=== PATIENT | male | born 1985 | race Caucasian/White ===

== ENCOUNTER 2018-09-08 00:47 | Inpatient (IN) | payer OTHER, SELFPAY ==
[~2018-09-08] VITALS: Ht 190.5 cm; Wt 107.2 kg
[2018-09-08] VITALS (19 sets, daily range): BP systolic 82–132; BP diastolic 34–65
[2018-09-08] MEDS ORDERED: SODIUM CHLORIDE FLUSH 10ML SYR IVF ONE (01:00)
[2018-09-08] MEDS ORDERED: ONDA4TAB7 PO (01:12)
[2018-09-08] MEDS ORDERED: BUPR2TAB SL (01:12)
[2018-09-08] MEDS ORDERED: LACT10SO28 PO (01:12)
[2018-09-08] MEDS ORDERED: ESOM20CA PO (01:12)
[2018-09-08] MEDS ORDERED: VALA500T PO (01:12)
[2018-09-08 01:38] LABS: INTERNATIONAL NORMALIZED RATIO 3.7 (0.93-1.1); PROTHROMBIN TIME 36.9 Seconds (9.6-11.5)
--- NOTE | 2018-09-08 01:42 | NUR ---
PER LAB K+1.9. ER INFORMED. REQUESTS REDRAW. LAB INFORMED.
[2018-09-08 01:43] LABS: MEAN CORPUSCULAR HEMOGLOBIN 24.4 pg (27.5-34.5); MEAN CORPUSCULAR HGB CONC 32.4 g/dL (33.2-36.2); MEAN CORPUSCULAR VOLUME 75.2 fL (81-97); MEAN PLATELET VOLUME 8.8 fL (7.4-10.4); PLATELET COUNT 262 x10^3/uL (130-400); RED BLOOD COUNT 4.08 x10^6/uL (4.38-5.82); RED CELL DISTRIBUTION WIDTH 26.3 % (9.4-14.8)
[2018-09-08 01:51] LABS: MD YES
[2018-09-08 01:54] LABS: ANISOCYTOSIS 1+; BAND#(MANUAL) 0.14 x10^3/uL; BANDS%(MANUAL) 1 % (0-7); EOS#(MANUAL) 0.28 x10^3/uL (0.0-0.4); EOS% (MANUAL) 2 % (1-7); HYPOCHROMIA 1+; LYMPH#(MANUAL) 1.13 x10^3/uL (1-3.4); LYMPHS% (MANUAL) 8 % (22-44); MONOS#(MANUAL) 1.13 x10^3/uL (0.3-2.7); MONOS% (MANUAL) 8 % (2-9); NRBC % (MANUAL) 12 % (0-1); POLYCHROMASIA 1+; SEG#(MANUAL) 11.42 x10^3/uL (1.8-6.8); SEGS% (MANUAL) 81 % (42-75)
[2018-09-08 01:55] LABS: OVALOCYTES 1+; TARGET CELLS 1+; TEAR DROPS 1+
[2018-09-08 01:56] LABS: BASOPHILLIC STIPPLING 1+
[2018-09-08 01:57] LABS: SPHEROCYTES 1+
[2018-09-08 01:58] LABS: <PLATELET ESTIMATE> ADEQUATE; LARGE PLATELETS 1+
[2018-09-08] MEDS ORDERED: POTASSIUM CHLORIDE 40 MEQ in SODIUM CHLORIDE 0.9% 500 ML IV ONE (02:00)
--- NOTE | 2018-09-08 02:06 | NUR ---
Bedside SBAR report received from RNLicha. 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
[2018-09-08 02:22] LABS: ALBUMIN 2.7 g/dL (3.4-5.0); ANION GAP 14 mmol/L (5-15); CALCIUM 7.5 mg/dL (8.5-10.1); CHLORIDE 85 mmol/L (98-107)
[2018-09-08 02:27] LABS: CREATININE 5.43 mg/dL (0.7-1.3)
[2018-09-08 02:33] LABS: ALKALINE PHOSPHATASE 197 U/L (45-117)
[2018-09-08 02:37] LABS: ALANINE AMINOTRANSFERASE 149 U/L (12-78); TOTAL PROTEIN 7.2 g/dL (6.4-8.2)
[2018-09-08 02:38] LABS: BILIRUBIN,TOTAL 57.6 mg/dL (0.2-1.0)
[2018-09-08] MEDS ORDERED: LACTULOSE 3.3 GM/5 ML ORAL.SOL RC ONE ×2 (03:00)
[2018-09-08] MEDS ORDERED: POTASSIUM CHLORIDE 20 MEQ in SODIUM CHLORIDE 0.9% 250 ML IV ONE (03:30)
[2018-09-08] MEDS ORDERED: SODIUM CHLORIDE 0.9%, 500ML IVBOLUS ONE (03:30)
--- NOTE | 2018-09-08 04:19 | NUR ---
ORDERED ENEMA DONE, PT TOLERATED WELL. ENEMA INSERTION WAS EASY, NO RESISTANCE DURING INSERTION. PT RECTALY BLEEDING MINUTES AFTER REMOVAL OF ENEMA TUBE. ERP AWARE. ATTEMPTED TO GET PT ONTO BEDSIDE COMMODE. PT UNABLE TO FOLLOW COMMANDS. ORDERED FLUIDS INFUSING AT THIS TIME. BEDSIDE ULTRASOUND TAKING PLACE CURRENTLY. HOSPITALIST IN TO EVAL. PT PULLED OUT AN IV. PT PLACED IN SOFT WRIST RESTRAINTS, SIGNED ORDER ON CHART. WILL CONTINUE TO MONITOR.
[2018-09-08] MEDS ORDERED: DEXTROSE 50%, 50ML SYRINGE IVPush PRN (05:00)
[2018-09-08] MEDS ORDERED: GLUCAGON 1 MG IM PRN (05:00)
[2018-09-08] MEDS ORDERED: DEXTROSE 4 GM TAB.CHEW PO PRN (05:00)
--- NOTE | 2018-09-08 05:12 | NUR ---
REPORT RECEIVED FROM MEL GARCIA. ASSUMED CARE OF PT. PT RESTING ON GURNEY, IN MEDICAL RESTRAINTS AT THIS TIME. AWAKE BUT CONFUSED. AWAITING HOSPITALIST ORDERS AT THIS TIME. WILL CONTINUE TO MONITOR.
[2018-09-08 05:25] LABS: AMPHETAMINE SCREEN, URINE Negative (Negative); BARBITURATE SCREEN, URINE Negative (Negative); BENZODIAZEPINE SCREEN, URINE Negative (Negative); CANNABINOID SCREEN, URINE Negative (Negative); CHLORIDE,URINE RANDOM 66 mmol/L; COCAINE SCREEN, URINE Negative (Negative); METHADONE SCREEN, URINE Negative (Negative); OPIATE SCREEN, URINE Positive (Negative); POTASSIUM,URINE RANDOM 31 mmol/L; SODIUM,URINE RANDOM 62 mmol/L
[2018-09-08 05:30] LABS: MICROSCOPIC NOT IND
--- NOTE | 2018-09-08 05:48 | NUR ---
PT PASSED APPROX 400-500ML OF BRIGHT RED BLOOD WITH LARGE CLOTS FROM HIS RECTUM. HOSPITALIST, KATERIN NOTIFIED. PT REMAINS CONFUSED, NOT INTERACTIVE, LETHARGIC. THIS DISCUSSED WITH THE HOSPITALIST ABOUT POSSIBLE INTUBATION AND NEED FOR FURTHER ORDERS, SHE WAS ALSO ADVISED OF CONTINUED BLEEDING. NO NEW ORDERS TO BE PLACED AT THIS TIME. ER PHYSICIAN CONSULTED GI. NEW ORDERS PLACED.
[2018-09-08 05:50] LABS: CULTURE INDICATED? NO
[2018-09-08] MEDS ORDERED: OCTREOTIDE 500 MCG in SODIUM CHLORIDE 0.9% 249 ML IV PRN (05:54)
[2018-09-08] MEDS ORDERED: OCTREOTIDE 100MCG/ML, 1ML (0.1MG/ML) ONE (06:00)
[2018-09-08] MEDS ORDERED: SODIUM CHLORIDE 0.9% 1,000 ML IV ONE (06:00)
[2018-09-08] MEDS ORDERED: OCTREOTIDE 100MCG/ML, 1ML (0.1MG/ML) IV ONE (06:00)
--- NOTE | 2018-09-08 06:01 | NUR ---
PT CLEANED, NEW GOWN AND BEDDING PLACED. PT MOVED TO TRAUMA ROOM. REPORT TO MEL NERI.
--- NOTE | 2018-09-08 06:20 | NUR ---
PINK TOP DRAWN AND HANDED TO DRUM TENDER
--- NOTE | 2018-09-08 06:23 | NUR ---
THIS RN, CARLOTA LEAL, AND NOMAN YOUNG SIGNED CONSENT FOR FFP. PT NON VERBAL, INCREASED CONFUSION, AND DOES NOT FOLLOW COMMANDS.
[2018-09-08] MEDS: OCTREOTIDE 500 MCG in DEXTROSE 5% 249 ML IV SCH ×2 (06:29→17:01)
[2018-09-08] MEDS ORDERED: LACTATED RINGERS 1,000 ML IVBOLUS ONE ×2 (07:00→17:30)
[2018-09-08] MEDS ORDERED: CALCIUM GLUCONATE 9.2 MEQ in SODIUM CHLORIDE 0.9% 100 ML IV ONE (07:00)
[2018-09-08] MEDS ORDERED: CEFTRIAXONE PMX 1GM/50ML 50 ML ONE (07:00)
--- NOTE | 2018-09-08 07:01 | NUR ---
REPORT RECEIVED, CARE ASSUMED.
[2018-09-08] MEDS: CEFTRIAXONE PMX 1GM/50ML 50 ML IV SCH (07:03)
--- NOTE | 2018-09-08 07:12 | NUR ---
ENGAGEMENT MANAGER AT BEDSIDE TO DRAW 2ND SET OF BOOLD CULTURES. 1ST SET DRAWN EARLIER. FAMILY AT BEDSIDE.
--- NOTE | 2018-09-08 07:35 | NUR ---
CALL TO DR NORRIS, DISCUSSED PT IV LINES, NEED FOR CENTRAL LINE. MD REQUESTS ER MD TO PLACE LINE. DISCUSSED WITH DR KARIMI. DR KARIMI DISCUSSED WITH FAMILY AT BEDSIDE. VERBAL CONSENT GIVEN.
--- NOTE | 2018-09-08 07:53 | NUR ---
REPORT TO SANTY LEAL, POC DISCUSSED.
--- NOTE | 2018-09-08 08:01 | NUR ---
CONSENT FOR CENTRAL LINE PLACEMENT SIGNED BY PTS MOTHER RACHELLE
--- NOTE | 2018-09-08 08:10 | NUR ---
DR KARIMI AT BEDSIDE FOR CENTRAL LINE PLACEMENT
--- NOTE | 2018-09-08 08:12 | NUR ---
PIV LINE FLUSED AFTER ROCEPHIN ADMIN. CALL TO PHARMACY REQUESTED CALCIUM GTT
--- NOTE | 2018-09-08 08:53 | NUR ---
PORTABLE CXR COMPLETED. PER DR AKRIMI "OK TO USE CENTRAL LINE.
--- NOTE | 2018-09-08 08:56 | NUR ---
PT HAD LARGE BLOODY STOOL, POLO CARE PROVIDED.
[2018-09-08] MEDS: prednisOLONE 15 MG/5 ML ORAL SOLN NG SCH ×2 (09:36→14:10)
[2018-09-08] MEDS ORDERED: FOLIC ACID 1 MG, THIAMINE 200 MG, MVI ADULT 10 ML in DEXTROSE 5% 1,000 ML IV SCH (10:30)
[2018-09-08] MEDS ORDERED: LACTULOSE 20 GM/30 ML UDC NG SCH (11:00)
[2018-09-08] MEDS: PANTOPRAZOLE 40 MG IV IVPush SCH ×2 (11:06→22:22)
[2018-09-08] MEDS: SODIUM CHLORIDE 0.9% 1,000 ML IV SCH (11:06)
[2018-09-08] MEDS: SODIUM CHLORIDE FLUSH 10ML SYR IVF SCH ×2 (11:07→20:11)
[2018-09-08] MEDS: RIFAXIMIN 550 MG TABLET NG SCH ×2 (14:10→20:11)
[2018-09-08] MEDS: THIAMINE 200 MG, FOLIC ACID 1 MG, MVI ADULT 10 ML in SODIUM CHLORIDE 0.9% 1,000 ML IV SCH ×2 (14:10→19:35)
[2018-09-08] MEDS: PHYTONADIONE 10 MG/ML, 1ML SQ SCH (14:11)
[2018-09-08] MEDS: LACTULOSE 20 GM/30 ML UDC NG SCH (19:51)
[2018-09-08] MEDS ORDERED: LACTATED RINGERS 500 ML IVBOLUS ONE (21:30)
[2018-09-08] MEDS: NOREPINEPHRINE 8 MG in SODIUM CHLORIDE 0.9% 242 ML IV PRN (22:18)
[2018-09-08 23:05] LABS: MEAN CORPUSCULAR HEMOGLOBIN 26.9 pg (27.5-34.5); MEAN CORPUSCULAR HGB CONC 33.5 g/dL (33.2-36.2); MEAN CORPUSCULAR VOLUME 80.3 fL (81-97); MEAN PLATELET VOLUME 8.7 fL (7.4-10.4); PLATELET COUNT 255 x10^3/uL (130-400); RED CELL DISTRIBUTION WIDTH 28.9 % (9.4-14.8)
[2018-09-08 23:18] LABS: INTERNATIONAL NORMALIZED RATIO 3.69 (0.93-1.1); PROTHROMBIN TIME 36.8 Seconds (9.6-11.5)
[2018-09-09] VITALS (28 sets, daily range): BP systolic 87–127; BP diastolic 30–63
[2018-09-09] MEDS: LACTULOSE 20 GM/30 ML UDC NG SCH ×2 (00:01→03:45)
[2018-09-09 02:24] LABS: INTERNATIONAL NORMALIZED RATIO 2.48 (0.93-1.1); PROTHROMBIN TIME 25.1 Seconds (9.6-11.5)
[2018-09-09] MEDS: OCTREOTIDE 500 MCG in DEXTROSE 5% 249 ML IV SCH ×2 (03:08→14:27)
[2018-09-09] MEDS: SODIUM CHLORIDE 0.9% 1,000 ML IV SCH (04:19)
[2018-09-09 05:35] LABS: PROTHROMBIN TIME 20.4 Seconds (9.6-11.5)
[2018-09-09] MEDS: KSCALE TO 4.5 IV SCH ×5 (06:00→21:30)
[2018-09-09] MEDS ORDERED: CALCIUM GLUCONATE 9.2 MEQ in SODIUM CHLORIDE 0.9% 100 ML IV ONE (06:00)
[2018-09-09] MEDS ORDERED: POTASSIUM CHLORIDE 40 MEQ in SODIUM CHLORIDE 0.9% 100 ML IV ONE ×2 (07:00→16:00)
[2018-09-09 07:23] LABS: ALANINE AMINOTRANSFERASE 184 U/L (12-78); ALBUMIN 2.2 g/dL (3.4-5.0); ANION GAP 17 mmol/L (5-15); CALCIUM 6.7 mg/dL (8.5-10.1); CHLORIDE 98 mmol/L (98-107)
[2018-09-09 07:36] LABS: ALKALINE PHOSPHATASE 110 U/L (45-117); HDL CHOLESTEROL (DIRECT) 12 mg/dL (40-60); MEAN CORPUSCULAR HEMOGLOBIN 28.5 pg (27.5-34.5); MEAN CORPUSCULAR HGB CONC 34.3 g/dL (33.2-36.2); MEAN PLATELET VOLUME 8.6 fL (7.4-10.4); PLATELET COUNT 229 x10^3/uL (130-400); RED BLOOD COUNT 2.62 x10^6/uL (4.38-5.82); RED CELL DISTRIBUTION WIDTH 25.8 % (9.4-14.8)
[2018-09-09 07:38] LABS: MD YES
[2018-09-09 07:42] LABS: EOS#(MANUAL) 0.17 x10^3/uL (0.0-0.4); EOS% (MANUAL) 1 % (1-7); LYMPH#(MANUAL) 2.09 x10^3/uL (1-3.4); LYMPHS% (MANUAL) 12 % (22-44); MONOS#(MANUAL) 2.61 x10^3/uL (0.3-2.7); MONOS% (MANUAL) 15 % (2-9); NRBC % (MANUAL) 24 % (0-1); SEG#(MANUAL) 12.53 x10^3/uL (1.8-6.8); SEGS% (MANUAL) 72 % (42-75)
[2018-09-09 07:43] LABS: ANISOCYTOSIS 2+; BASOPHILLIC STIPPLING 1+; HYPOCHROMIA 1+; MICROCYTOSIS 1+; POLYCHROMASIA 1+; SCHISTOCYTES 2+; TARGET CELLS 1+
[2018-09-09 07:44] LABS: OVALOCYTES 1+; TEAR DROPS 1+
[2018-09-09 07:45] LABS: <PLATELET ESTIMATE> ADEQUATE; LARGE PLATELETS 1+
[2018-09-09 08:06] LABS: TOTAL PROTEIN 4.3 g/dL (6.4-8.2); TRIGLYCERIDES 113 mg/dL (50-200); VLDL CHOLESTEROL 23 mg/dL (0-25)
[2018-09-09 08:07] LABS: CHOL/HDL RATIO 4.2; CHOLESTEROL, TOTAL < 50 mg/dL (140-239); CREATININE 6.65 mg/dL (0.7-1.3); HDL CHOL % 0 % (26-37); LDL CHOLESTEROL,CALCULATED 15 mg/dL (54-169); LDL/HDL RATIO 1.3 (0.5-3.0)
[2018-09-09 08:11] LABS: BILIRUBIN,TOTAL 40.5 mg/dL (0.2-1.0)
[2018-09-09] MEDS ORDERED: FENTANYL PF 100 MCG/2ML ONE ×2 (08:29→08:38)
[2018-09-09] MEDS ORDERED: MIDAZOLAM 1 MG/ML, 5ML ONE (08:29)
[2018-09-09] MEDS ORDERED: NEOSTIGMINE 1 MG/ML, 10ML ONE (08:39)
[2018-09-09] MEDS ORDERED: LIDOCAINE-MPF 2% ,5ML ONE (08:39)
[2018-09-09] MEDS ORDERED: PROPOFOL 10 MG/ML, 20ML ONE (08:39)
[2018-09-09] MEDS ORDERED: ROCURONIUM 10MG/ML,5ML ONE (08:39)
[2018-09-09] MEDS ORDERED: SUCCINYLCHOLINE 20 MG/ML, 10ML ONE (08:40)
[2018-09-09] MEDS: RIFAXIMIN 550 MG TABLET NG SCH ×2 (09:00→21:00)
[2018-09-09] MEDS ORDERED: PHYTONADIONE 10 MG/ML, 1ML SQ SCH (09:00)
[2018-09-09] MEDS: prednisOLONE 15 MG/5 ML ORAL SOLN NG SCH (09:00)
[2018-09-09] MEDS: SODIUM CHLORIDE FLUSH 10ML SYR IVF SCH ×3 (09:37→21:00)
[2018-09-09] MEDS: CEFTRIAXONE PMX 1GM/50ML 50 ML IV SCH (09:37)
[2018-09-09] MEDS ORDERED: DEXTROSE 50%, 50ML SYRINGE IVPush PRN (10:00)
[2018-09-09] MEDS ORDERED: DEXTROSE 4 GM TAB.CHEW PO PRN (10:00)
[2018-09-09] MEDS ORDERED: PHARMACY MAY ADJ FOR RENAL FX MC SCH (10:00)
[2018-09-09] MEDS ORDERED: GLUCAGON 1 MG IM PRN (10:00)
[2018-09-09] MEDS ORDERED: LIDOCAINE-MPF 1%, 2ML ENDO PRN (10:00)
[2018-09-09] MEDS ORDERED: FENTANYL PF 100 MCG/2ML IVPush PRN (10:00)
[2018-09-09] MEDS ORDERED: MAGNESIUM SULFATE PMX 2GM/50ML 50 ML IV ONE (10:30)
[2018-09-09 10:54] LABS: TRIGLYCERIDES 108 mg/dL (50-200)
[2018-09-09] MEDS: INSULIN LISPRO 100 UNITS/ML, PEN SQ-INSULIN SCH ×3 (11:00→21:00)
[2018-09-09] MEDS: PANTOPRAZOLE 40 MG IV IVPush SCH ×2 (11:14→22:27)
[2018-09-09] MEDS: LACTULOSE 3.3 GM/5 ML ORAL.SOL RC SCH (11:30)
[2018-09-09] MEDS: PROPOFOL 100 ML IV PRN ×2 (14:27→20:04)
[2018-09-09] MEDS: PHYTONADIONE 10 MG/ML, 1ML SQ SCH (14:28)
[2018-09-09] MEDS ORDERED: THIAMINE 200 MG, FOLIC ACID 1 MG, MVI ADULT 10 ML in SODIUM CHLORIDE 0.9% 1,000 ML IV SCH (16:00)
[2018-09-09] MEDS: NOREPINEPHRINE 8 MG in SODIUM CHLORIDE 0.9% 242 ML IV PRN (19:38)
[2018-09-09] MEDS ORDERED: ALBUMIN HUMAN 5% 500 ML IV ONE (20:00)
[2018-09-09] MEDS ORDERED: VASOPRESSIN 100 UNIT in SODIUM CHLORIDE 0.9% 495 ML IV PRN (20:00)
[2018-09-09] MEDS: VASOPRESSIN 100 UNIT in SODIUM CHLORIDE 0.9% 495 ML IV PRN (22:24)
[2018-09-09] MEDS ORDERED: POTASSIUM CHLORIDE 30 MEQ in SODIUM CHLORIDE 0.9% 100 ML IV ONE (22:30)
[2018-09-09] MEDS ORDERED: NOREPINEPHRINE 16 MG in SODIUM CHLORIDE 0.9% 234 ML IV PRN (23:36)
[2018-09-10] MEDS: OCTREOTIDE 500 MCG in DEXTROSE 5% 249 ML IV SCH ×3 (00:19→20:56)
[2018-09-10] MEDS: INSULIN LISPRO 100 UNITS/ML, PEN SQ-INSULIN SCH ×4 (02:56→23:35)
[2018-09-10] MEDS: PROPOFOL 100 ML IV PRN ×4 (02:57→18:19)
[2018-09-10] MEDS: KSCALE TO 4.5 IV SCH ×4 (02:57→23:00)
[2018-09-10 03:26] LABS: ALBUMIN 2.3 g/dL (3.4-5.0); ANION GAP 15 mmol/L (5-15); CHLORIDE 106 mmol/L (98-107)
[2018-09-10 03:39] LABS: ALANINE AMINOTRANSFERASE 234 U/L (12-78); ALKALINE PHOSPHATASE 121 U/L (45-117)
[2018-09-10 03:48] LABS: CREATININE 7.71 mg/dL (0.7-1.3); TOTAL PROTEIN 4.2 g/dL (6.4-8.2)
[2018-09-10 03:49] LABS: CALCIUM 5.9 mg/dL (8.5-10.1)
[2018-09-10 04:00] VITALS: BP_SYST 115; BP_SYST 130; BP_DIAS 48; BP_DIAS 60
[2018-09-10] MEDS ORDERED: POTASSIUM CHLORIDE 30 MEQ in SODIUM CHLORIDE 0.9% 100 ML IV ONE ×4 (04:00→23:30)
[2018-09-10] MEDS ORDERED: CALCIUM GLUCONATE 9.2 MEQ in SODIUM CHLORIDE 0.9% 100 ML IV ONE (04:00)
[2018-09-10 04:37] LABS: MEAN CORPUSCULAR HEMOGLOBIN 28.9 pg (27.5-34.5); MEAN CORPUSCULAR HGB CONC 34.1 g/dL (33.2-36.2); MEAN CORPUSCULAR VOLUME 84.7 fL (81-97); MEAN PLATELET VOLUME 8.7 fL (7.4-10.4); PLATELET COUNT 229 x10^3/uL (130-400); RED BLOOD COUNT 2.86 x10^6/uL (4.38-5.82); RED CELL DISTRIBUTION WIDTH 22.3 % (9.4-14.8)
[2018-09-10 05:03] LABS: MD YES
[2018-09-10 05:05] LABS: BAND#(MANUAL) 1.31 x10^3/uL; BANDS%(MANUAL) 5 % (0-7); LYMPH#(MANUAL) 2.09 x10^3/uL (1-3.4); LYMPHS% (MANUAL) 8 % (22-44); METAMYELOCYTES# (MANUAL) 0.26 x10^3/uL (0-0); METAMYELOCYTES% (MANUAL) 1 % (0-1); MONOS#(MANUAL) 4.96 x10^3/uL (0.3-2.7); MONOS% (MANUAL) 19 % (2-9); MYELOCYTES# (MANUAL) 0.26 x10^3/uL (0-0); MYELOCYTES% (MANUAL) 1 % (0-0); NRBC % (MANUAL) 23 % (0-1); SEG#(MANUAL) 17.23 x10^3/uL (1.8-6.8); SEGS% (MANUAL) 66 % (42-75)
[2018-09-10 05:06] LABS: ANISOCYTOSIS 2+; HYPOCHROMIA 1+; POLYCHROMASIA 1+
[2018-09-10 05:07] LABS: <PLATELET ESTIMATE> ADEQUATE; <PLT MORPHOLOGY> NORMAL PLT MORPH; BASOPHILLIC STIPPLING 1+; CRENATED 1+; OVALOCYTES 1+; TARGET CELLS 1+; TEAR DROPS 1+
[2018-09-10] MEDS: SODIUM BICARBONATE 8.4% 150 MEQ in DEXTROSE 5% 1,000 ML IV SCH ×2 (05:15→18:42)
[2018-09-10] MEDS ORDERED: PROPOFOL 10 MG/ML, 100ML IV ONE (07:29)
[2018-09-10] MEDS: NOREPINEPHRINE 16 MG in SODIUM CHLORIDE 0.9% 234 ML IV PRN ×2 (07:44→20:58)
[2018-09-10] MEDS: CEFTRIAXONE PMX 1GM/50ML 50 ML IV SCH (07:56)
[2018-09-10] MEDS ORDERED: TPN PER PHARMACY MC PRN (08:30)
[2018-09-10] MEDS: RIFAXIMIN 550 MG TABLET NG SCH ×2 (09:00→19:52)
[2018-09-10] MEDS: SODIUM CHLORIDE FLUSH 10ML SYR IVF SCH ×4 (09:00→20:59)
[2018-09-10] MEDS: prednisOLONE 15 MG/5 ML ORAL SOLN NG SCH (09:00)
[2018-09-10] MEDS ORDERED: SODIUM CHLORIDE 0.9% 1,000 ML IV SCH (10:30)
[2018-09-10] MEDS: LACTULOSE 3.3 GM/5 ML ORAL.SOL RC SCH (11:34)
[2018-09-10 11:48] LABS: CALCIUM 6.4 mg/dL (8.5-10.1)
[2018-09-10] MEDS: PHYTONADIONE 10 MG/ML, 1ML SQ SCH (14:54)
[2018-09-10] MEDS ORDERED: DEXTROSE 50%, 50ML SYRINGE IVPush PRN (17:00)
[2018-09-10] MEDS ORDERED: SMOF TPN IV SCH (17:00)
[2018-09-10] MEDS ORDERED: DEXTROSE 10% 500 ML IV PRN (17:00)
[2018-09-10] MEDS ORDERED: FAT EMUL IV SCH (17:00)
[2018-09-10] MEDS ORDERED: AMINO ACID 10% IV SCH (17:00)
[2018-09-10] MEDS ORDERED: DEXTROSE 70% IV SCH (17:00)
[2018-09-10] MEDS ORDERED: [UNRECOGNIZED DRUG - OTHER] IV SCH (17:00)
[2018-09-10] MEDS: FILTER, DISP 1.2 MICRON FOR TPN/PVN IV PRN (17:22)
[2018-09-10 17:34] LABS: HEMOGRAM NOTE RECHECKED
[2018-09-10] MEDS ORDERED: PANTOPRAZOLE GRAN. PKT 40 MG PO SCH (22:00)
[2018-09-10] MEDS ORDERED: PANTOPRAZOLE 40 MG IV IVPush SCH (22:00)
[2018-09-10 23:42] VITALS: BP 120/51
[2018-09-10 23:57] VITALS: BP 126/50
[2018-09-11 01:25] VITALS: BP 123/52
[2018-09-11 04:00] VITALS: BP 114/49
[2018-09-11] MEDS: INSULIN LISPRO 100 UNITS/ML, PEN SQ-INSULIN SCH ×4 (05:00→23:00)
[2018-09-11] MEDS: KSCALE TO 4.5 IV SCH ×4 (05:00→23:00)
[2018-09-11 05:54] LABS: ANION GAP 12 mmol/L (5-15); CALCIUM 6.6 mg/dL (8.5-10.1); CHLORIDE 107 mmol/L (98-107)
[2018-09-11 05:57] LABS: MD YES; MEAN CORPUSCULAR HEMOGLOBIN 29.4 pg (27.5-34.5); MEAN CORPUSCULAR HGB CONC 34.4 g/dL (33.2-36.2); MEAN CORPUSCULAR VOLUME 85.4 fL (81-97); MEAN PLATELET VOLUME 8.4 fL (7.4-10.4); PLATELET COUNT 163 x10^3/uL (130-400); RED BLOOD COUNT 2.58 x10^6/uL (4.38-5.82); RED CELL DISTRIBUTION WIDTH 19.6 % (9.4-14.8)
[2018-09-11 05:58] LABS: PREALBUMIN 8.4 mg/dL (20.0-40.0)
[2018-09-11 05:59] LABS: CREATININE 8.42 mg/dL (0.7-1.3)
[2018-09-11 06:00] LABS: BAND#(MANUAL) 0.83 x10^3/uL; BANDS%(MANUAL) 3 % (0-7); EOS#(MANUAL) 0.28 x10^3/uL (0.0-0.4); EOS% (MANUAL) 1 % (1-7); LYMPH#(MANUAL) 2.48 x10^3/uL (1-3.4); LYMPHS% (MANUAL) 9 % (22-44); METAMYELOCYTES# (MANUAL) 0.28 x10^3/uL (0-0); METAMYELOCYTES% (MANUAL) 1 % (0-1); MONOS#(MANUAL) 2.48 x10^3/uL (0.3-2.7); MONOS% (MANUAL) 9 % (2-9); NRBC % (MANUAL) 50 % (0-1); SEG#(MANUAL) 21.25 x10^3/uL (1.8-6.8); SEGS% (MANUAL) 77 % (42-75)
[2018-09-11 06:01] LABS: ANISOCYTOSIS 2+; MICROCYTOSIS 1+
[2018-09-11 06:02] LABS: BASOPHILLIC STIPPLING 1+; HYPOCHROMIA 1+; OVALOCYTES 1+; POLYCHROMASIA 1+; SCHISTOCYTES 1+; TARGET CELLS 1+
[2018-09-11 06:03] LABS: TEAR DROPS 1+
[2018-09-11 06:04] LABS: <PLATELET ESTIMATE> ADEQUATE; <PLT MORPHOLOGY> NORMAL PLT MORPH; TOXIC GRAN 1+
[2018-09-11] MEDS: PANTOPRAZOLE 40 MG IV IVPush SCH (06:21)
[2018-09-11] MEDS ORDERED: POTASSIUM CHLORIDE 40 MEQ in SODIUM CHLORIDE 0.9% 100 ML IV ONE (06:30)
[2018-09-11 07:30] VITALS: BP 117/52
[2018-09-11] MEDS: RIFAXIMIN 550 MG TABLET NG SCH ×2 (09:00→19:20)
[2018-09-11] MEDS: prednisOLONE 15 MG/5 ML ORAL SOLN NG SCH (09:00)
[2018-09-11] MEDS: CEFTRIAXONE PMX 1GM/50ML 50 ML IV SCH (09:08)
[2018-09-11] MEDS: SODIUM CHLORIDE FLUSH 10ML SYR IVF SCH ×4 (09:09→23:19)
[2018-09-11] MEDS: OCTREOTIDE 500 MCG in DEXTROSE 5% 249 ML IV SCH ×2 (09:34→17:30)
[2018-09-11] MEDS: LACTULOSE 3.3 GM/5 ML ORAL.SOL RC SCH (09:40)
[2018-09-11 10:19] LABS: ALBUMIN 1.9 g/dL (3.4-5.0)
[2018-09-11 10:29] LABS: BILIRUBIN,INDIRECT 6.1 mg/dL (0.0-2.0)
[2018-09-11 10:30] LABS: TOTAL PROTEIN 3.8 g/dL (6.4-8.2)
[2018-09-11 10:34] LABS: BILIRUBIN, DIRECT 30.6 mg/dL (0.1-0.2); BILIRUBIN,TOTAL 36.7 mg/dL (0.2-1.0)
[2018-09-11] MEDS: NOREPINEPHRINE 16 MG in SODIUM CHLORIDE 0.9% 234 ML IV PRN ×2 (10:54→23:18)
[2018-09-11] MEDS: SODIUM BICARBONATE 8.4% 150 MEQ in DEXTROSE 5% 1,000 ML IV SCH (11:03)
[2018-09-11 11:27] LABS: HEMOGRAM NOTE RECHECKED
[2018-09-11] MEDS: PROPOFOL 100 ML IV PRN (11:29)
[2018-09-11] MEDS ORDERED: POTASSIUM CHLORIDE 30 MEQ in SODIUM CHLORIDE 0.9% 100 ML IV ONE ×2 (13:00→23:45)
[2018-09-11 14:19] VITALS: BP 107/45
[2018-09-11 14:34] VITALS: BP 110/46
[2018-09-11 16:00] VITALS: BP 115/53
[2018-09-11] MEDS ORDERED: SMOF TPN IV SCH (17:00)
[2018-09-11] MEDS ORDERED: DEXTROSE 70% IV SCH (17:00)
[2018-09-11] MEDS ORDERED: FAT EMUL IV SCH (17:00)
[2018-09-11] MEDS ORDERED: AMINO ACID 10% IV SCH (17:00)
[2018-09-11] MEDS ORDERED: [UNRECOGNIZED DRUG - OTHER] IV SCH (17:00)
[2018-09-11] MEDS: VASOPRESSIN 100 UNIT in SODIUM CHLORIDE 0.9% 495 ML IV PRN (17:30)
[2018-09-12] MEDS: PROPOFOL 100 ML IV PRN ×2 (00:33→10:27)
[2018-09-12 00:46] VITALS: BP 117/56
[2018-09-12 01:02] VITALS: BP 115/53
[2018-09-12 03:02] VITALS: BP 125/55
[2018-09-12] MEDS: SODIUM BICARBONATE 8.4% 150 MEQ in DEXTROSE 5% 1,000 ML IV SCH ×2 (03:19→17:10)
[2018-09-12] MEDS: OCTREOTIDE 500 MCG in DEXTROSE 5% 249 ML IV SCH ×2 (03:19→16:09)
[2018-09-12 04:00] VITALS: BP 117/52
[2018-09-12 05:06] LABS: ANION GAP 8 mmol/L (5-15); CHLORIDE 104 mmol/L (98-107)
[2018-09-12 05:07] LABS: CREATININE 6.76 mg/dL (0.7-1.3); TRIGLYCERIDES 114 mg/dL (50-200)
[2018-09-12] MEDS ORDERED: POTASSIUM CHLORIDE 40 MEQ in SODIUM CHLORIDE 0.9% 100 ML IV ONE (05:30)
[2018-09-12] MEDS: INSULIN LISPRO 100 UNITS/ML, PEN SQ-INSULIN SCH ×4 (05:47→22:39)
[2018-09-12] MEDS: PANTOPRAZOLE 40 MG IV IVPush SCH (05:47)
[2018-09-12] MEDS: KSCALE TO 4.5 IV SCH ×4 (05:47→23:00)
[2018-09-12 05:53] LABS: MD YES; MEAN CORPUSCULAR HEMOGLOBIN 30.7 pg (27.5-34.5); MEAN CORPUSCULAR HGB CONC 34.7 g/dL (33.2-36.2); MEAN CORPUSCULAR VOLUME 88.4 fL (81-97); MEAN PLATELET VOLUME 9.1 fL (7.4-10.4); PLATELET COUNT 83 x10^3/uL (130-400); RED BLOOD COUNT 2.65 x10^6/uL (4.38-5.82); RED CELL DISTRIBUTION WIDTH 18.6 % (9.4-14.8)
[2018-09-12 05:58] LABS: <PLATELET ESTIMATE> DECREASED; <PLT MORPHOLOGY> NORMAL PLT MORPH; ANISOCYTOSIS 2+; BANDS%(MANUAL) 2 % (0-7); BASOPHILLIC STIPPLING 1+; EOS#(MANUAL) 0.99 x10^3/uL (0.0-0.4); EOS% (MANUAL) 4 % (1-7); HYPOCHROMIA 1+; LYMPH#(MANUAL) 2.73 x10^3/uL (1-3.4); LYMPHS% (MANUAL) 11 % (22-44); METAMYELOCYTES# (MANUAL) 0.74 x10^3/uL (0-0); METAMYELOCYTES% (MANUAL) 3 % (0-1); MICROCYTOSIS 1+; MONOS#(MANUAL) 2.98 x10^3/uL (0.3-2.7); MONOS% (MANUAL) 12 % (2-9); MYELOCYTES% (MANUAL) 2 % (0-0); NRBC % (MANUAL) 36 % (0-1); OVALOCYTES 1+; SCHISTOCYTES 1+; SEG#(MANUAL) 16.37 x10^3/uL (1.8-6.8); SEGS% (MANUAL) 66 % (42-75); TARGET CELLS 1+
[2018-09-12 05:59] LABS: POLYCHROMASIA 1+
[2018-09-12 06:00] LABS: ACANTHOCYTES 1+; ECHINOCYTES 1+; TOXIC GRAN 1+
[2018-09-12] MEDS: CEFTRIAXONE PMX 1GM/50ML 50 ML IV SCH (08:48)
[2018-09-12] MEDS: SODIUM CHLORIDE FLUSH 10ML SYR IVF SCH ×4 (08:56→20:14)
[2018-09-12] MEDS: NOREPINEPHRINE 16 MG in SODIUM CHLORIDE 0.9% 234 ML IV PRN ×2 (08:58→22:39)
[2018-09-12] MEDS: RIFAXIMIN 550 MG TABLET NG SCH ×2 (09:00→19:22)
[2018-09-12] MEDS: prednisOLONE 15 MG/5 ML ORAL SOLN NG SCH (09:00)
[2018-09-12] MEDS: LACTULOSE 3.3 GM/5 ML ORAL.SOL RC SCH (10:28)
[2018-09-12 13:09] LABS: ALBUMIN 1.4 g/dL (3.4-5.0); BILIRUBIN,INDIRECT 5.7 mg/dL (0.0-2.0)
[2018-09-12 13:12] LABS: TOTAL PROTEIN 3.4 g/dL (6.4-8.2)
[2018-09-12 13:15] LABS: BILIRUBIN, DIRECT 24.8 mg/dL (0.1-0.2); BILIRUBIN,TOTAL 30.5 mg/dL (0.2-1.0)
[2018-09-12] MEDS ORDERED: POTASSIUM CHLORIDE PMX 100 ML IV ONE (14:30)
[2018-09-12] MEDS: FAT EMUL IV SCH ×2 (17:12→18:18)
[2018-09-12] MEDS: AMINO ACID 10% IV SCH ×2 (17:12→18:18)
[2018-09-12] MEDS: DEXTROSE 70% IV SCH ×2 (17:12→18:18)
[2018-09-12] MEDS: SMOF TPN IV SCH ×2 (17:12→18:18)
[2018-09-12] MEDS: FILTER, DISP 1.2 MICRON FOR TPN/PVN IV PRN ×2 (17:12→18:18)
[2018-09-12] MEDS: [UNRECOGNIZED DRUG - OTHER] IV SCH ×2 (17:12→18:18)
[2018-09-12 17:29] LABS: INTERNATIONAL NORMALIZED RATIO 2.49 (0.93-1.1); PROTHROMBIN TIME 25.2 Seconds (9.6-11.5)
[2018-09-12] MEDS: VASOPRESSIN 100 UNIT in SODIUM CHLORIDE 0.9% 495 ML IV PRN (22:04)
[2018-09-13 00:58] VITALS: BP 106/44
[2018-09-13 01:13] VITALS: BP 113/44
[2018-09-13] MEDS: PROPOFOL 100 ML IV PRN ×3 (03:08→22:48)
[2018-09-13] MEDS: OCTREOTIDE 500 MCG in DEXTROSE 5% 249 ML IV SCH ×3 (03:08→22:47)
[2018-09-13 03:48] VITALS: BP 123/57
[2018-09-13 04:00] VITALS: BP 109/46
[2018-09-13] MEDS: KSCALE TO 4.5 IV SCH ×4 (05:00→23:00)
[2018-09-13 05:06] LABS: MEAN CORPUSCULAR HEMOGLOBIN 30.1 pg (27.5-34.5); MEAN CORPUSCULAR HGB CONC 34.1 g/dL (33.2-36.2); MEAN CORPUSCULAR VOLUME 88.4 fL (81-97); MEAN PLATELET VOLUME 9.3 fL (7.4-10.4); PLATELET COUNT 72 x10^3/uL (130-400); RED CELL DISTRIBUTION WIDTH 17.4 % (9.4-14.8)
[2018-09-13 05:12] LABS: ANION GAP 6 mmol/L (5-15); CALCIUM 7.3 mg/dL (8.5-10.1); CHLORIDE 101 mmol/L (98-107)
[2018-09-13 05:18] LABS: CREATININE 5.56 mg/dL (0.7-1.3)
[2018-09-13] MEDS: PANTOPRAZOLE 40 MG IV IVPush SCH (05:41)
[2018-09-13] MEDS: INSULIN LISPRO 100 UNITS/ML, PEN SQ-INSULIN SCH ×4 (05:41→22:53)
[2018-09-13 05:42] LABS: MD YES
[2018-09-13 05:45] LABS: BAND#(MANUAL) 0.61 x10^3/uL; BANDS%(MANUAL) 2 % (0-7); EOS#(MANUAL) 0.61 x10^3/uL (0.0-0.4); EOS% (MANUAL) 2 % (1-7); LYMPH#(MANUAL) 1.82 x10^3/uL (1-3.4); LYMPHS% (MANUAL) 6 % (22-44); METAMYELOCYTES# (MANUAL) 1.22 x10^3/uL (0-0); METAMYELOCYTES% (MANUAL) 4 % (0-1); MONOS#(MANUAL) 3.34 x10^3/uL (0.3-2.7); MONOS% (MANUAL) 11 % (2-9); MYELOCYTES% (MANUAL) 1 % (0-0); NRBC % (MANUAL) 21 % (0-1); SEGS% (MANUAL) 74 % (42-75)
[2018-09-13 05:46] LABS: <PLATELET ESTIMATE> DECREASED; <PLT MORPHOLOGY> NORMAL PLT MORPH; ACANTHOCYTES 1+; ANISOCYTOSIS 2+; BASOPHILLIC STIPPLING 1+; ECHINOCYTES 1+; HYPOCHROMIA 1+; MICROCYTOSIS 1+; OVALOCYTES 1+; POLYCHROMASIA 1+; SCHISTOCYTES 1+; TOXIC GRAN 1+
[2018-09-13] MEDS ORDERED: MICROFIBRILLAR COLLAGEN 1 GM TP ONE (08:30)
[2018-09-13] MEDS: RIFAXIMIN 550 MG TABLET NG SCH ×2 (08:32→20:01)
[2018-09-13] MEDS: SODIUM CHLORIDE FLUSH 10ML SYR IVF SCH ×4 (08:32→22:47)
[2018-09-13] MEDS: CEFTRIAXONE PMX 1GM/50ML 50 ML IV SCH (08:32)
[2018-09-13] MEDS: prednisOLONE 15 MG/5 ML ORAL SOLN NG SCH (08:32)
[2018-09-13] MEDS ORDERED: PHENYLEPHRINE 20 MG in SODIUM CHLORIDE 0.9% 248 ML IV PRN (09:00)
[2018-09-13] MEDS: LACTULOSE 3.3 GM/5 ML ORAL.SOL RC SCH (10:12)
[2018-09-13] MEDS: HYDROCORTISONE 100 MG INJ. IVPush SCH ×3 (10:12→23:56)
[2018-09-13] MEDS: NOREPINEPHRINE 16 MG in SODIUM CHLORIDE 0.9% 234 ML IV PRN (10:29)
[2018-09-13 12:18] LABS: INTERNATIONAL NORMALIZED RATIO 2.63 (0.93-1.1); PROTHROMBIN TIME 26.6 Seconds (9.6-11.5)
[2018-09-13 12:20] LABS: CHLORIDE 99 mmol/L (98-107)
[2018-09-13 12:37] LABS: ALANINE AMINOTRANSFERASE 178 U/L (12-78); ALBUMIN 1.5 g/dL (3.4-5.0); ALKALINE PHOSPHATASE 126 U/L (45-117); ANION GAP 8 mmol/L (5-15)
[2018-09-13 12:59] LABS: CREATININE 5.83 mg/dL (0.7-1.3)
[2018-09-13 13:01] LABS: BILIRUBIN,TOTAL 33.6 mg/dL (0.2-1.0)
[2018-09-13] MEDS ORDERED: AMINO ACID 10% IV SCH (17:00)
[2018-09-13] MEDS ORDERED: FAT EMUL IV SCH (17:00)
[2018-09-13] MEDS ORDERED: DEXTROSE 70% IV SCH (17:00)
[2018-09-13] MEDS ORDERED: SMOF TPN IV SCH (17:00)
[2018-09-13] MEDS ORDERED: [UNRECOGNIZED DRUG - OTHER] IV SCH (17:00)
[2018-09-14 04:03] VITALS: BP 113/50
[2018-09-14] MEDS: PANTOPRAZOLE 40 MG IV IVPush SCH (04:58)
[2018-09-14] MEDS: INSULIN LISPRO 100 UNITS/ML, PEN SQ-INSULIN SCH ×4 (05:00→23:00)
[2018-09-14] MEDS: KSCALE TO 4.5 IV SCH (05:00)
[2018-09-14 05:41] LABS: CHLORIDE 98 mmol/L (98-107)
[2018-09-14 06:00] LABS: ALANINE AMINOTRANSFERASE 149 U/L (12-78); ALBUMIN 1.4 g/dL (3.4-5.0); ALKALINE PHOSPHATASE 114 U/L (45-117); ANION GAP 10 mmol/L (5-15); CALCIUM 7.9 mg/dL (8.5-10.1)
[2018-09-14 06:06] LABS: CREATININE 6.55 mg/dL (0.7-1.3); TOTAL PROTEIN 3.8 g/dL (6.4-8.2)
[2018-09-14 06:08] LABS: BILIRUBIN,TOTAL 30.6 mg/dL (0.2-1.0)
[2018-09-14 06:29] LABS: MD YES; MEAN CORPUSCULAR HEMOGLOBIN 30.9 pg (27.5-34.5); MEAN CORPUSCULAR HGB CONC 34.1 g/dL (33.2-36.2); MEAN CORPUSCULAR VOLUME 90.8 fL (81-97); MEAN PLATELET VOLUME 10.7 fL (7.4-10.4); PLATELET COUNT 73 x10^3/uL (130-400); RED BLOOD COUNT 2.65 x10^6/uL (4.38-5.82); RED CELL DISTRIBUTION WIDTH 17.3 % (9.4-14.8)
[2018-09-14 06:31] LABS: LYMPH#(MANUAL) 2.47 x10^3/uL (1-3.4); LYMPHS% (MANUAL) 8 % (22-44); MONOS#(MANUAL) 1.24 x10^3/uL (0.3-2.7); MONOS% (MANUAL) 4 % (2-9); MYELOCYTES# (MANUAL) 0.62 x10^3/uL (0-0); MYELOCYTES% (MANUAL) 2 % (0-0); NRBC % (MANUAL) 21 % (0-1); SEG#(MANUAL) 26.57 x10^3/uL (1.8-6.8); SEGS% (MANUAL) 86 % (42-75)
[2018-09-14 06:32] LABS: ANISOCYTOSIS 2+; BASOPHILLIC STIPPLING 1+; MICROCYTOSIS 1+; POLYCHROMASIA 1+
[2018-09-14 06:33] LABS: TEAR DROPS 1+
[2018-09-14 06:35] LABS: OVALOCYTES 1+; SCHISTOCYTES 1+
[2018-09-14 06:37] LABS: <PLATELET ESTIMATE> DECREASED; <PLT MORPHOLOGY> NORMAL PLT MORPH
[2018-09-14 06:38] LABS: TOXIC GRAN 1+
[2018-09-14 06:53] LABS: INTERNATIONAL NORMALIZED RATIO 2.88 (0.93-1.1)
[2018-09-14] MEDS: CEFTRIAXONE PMX 1GM/50ML 50 ML IV SCH (07:52)
[2018-09-14] MEDS: PROPOFOL 100 ML IV PRN (08:19)
[2018-09-14] MEDS: RIFAXIMIN 550 MG TABLET NG SCH ×2 (09:00→21:00)
[2018-09-14] MEDS: SODIUM CHLORIDE FLUSH 10ML SYR IVF SCH ×4 (09:00→22:21)
[2018-09-14] MEDS: LACTULOSE 3.3 GM/5 ML ORAL.SOL RC SCH (09:25)
[2018-09-14] MEDS: HYDROCORTISONE 100 MG INJ. IVPush SCH ×2 (09:25→17:35)
[2018-09-14] MEDS: OCTREOTIDE 500 MCG in DEXTROSE 5% 249 ML IV SCH ×2 (09:32→23:21)
[2018-09-14] MEDS ORDERED: SMOF TPN IV SCH (17:00)
[2018-09-14] MEDS ORDERED: [UNRECOGNIZED DRUG - OTHER] IV SCH (17:00)
[2018-09-14] MEDS ORDERED: AMINO ACID 10% IV SCH (17:00)
[2018-09-14] MEDS ORDERED: FAT EMUL IV SCH (17:00)
[2018-09-14] MEDS ORDERED: DEXTROSE 70% IV SCH (17:00)
[2018-09-14] MEDS: NOREPINEPHRINE 16 MG in SODIUM CHLORIDE 0.9% 234 ML IV PRN (17:36)
[2018-09-15] MEDS: HYDROCORTISONE 100 MG INJ. IVPush SCH ×3 (01:35→17:00)
[2018-09-15] MEDS: PROPOFOL 100 ML IV PRN (03:35)
[2018-09-15 04:00] VITALS: BP 94/48
[2018-09-15 04:55] LABS: ANION GAP 11 mmol/L (5-15); CHLORIDE 98 mmol/L (98-107)
[2018-09-15] MEDS: INSULIN LISPRO 100 UNITS/ML, PEN SQ-INSULIN SCH ×3 (04:56→17:00)
[2018-09-15 04:58] LABS: CREATININE 5.89 mg/dL (0.7-1.3); TRIGLYCERIDES 143 mg/dL (50-200)
[2018-09-15 05:50] LABS: MD YES; MEAN CORPUSCULAR HEMOGLOBIN 31.2 pg (27.5-34.5); MEAN CORPUSCULAR HGB CONC 34.1 g/dL (33.2-36.2); MEAN CORPUSCULAR VOLUME 91.5 fL (81-97); MEAN PLATELET VOLUME 10.6 fL (7.4-10.4); PLATELET COUNT 139 x10^3/uL (130-400); RED BLOOD COUNT 2.75 x10^6/uL (4.38-5.82); RED CELL DISTRIBUTION WIDTH 18.4 % (9.4-14.8)
[2018-09-15 05:52] LABS: BAND#(MANUAL) 0.32 x10^3/uL; BANDS%(MANUAL) 1 % (0-7); LYMPH#(MANUAL) 1.92 x10^3/uL (1-3.4); LYMPHS% (MANUAL) 6 % (22-44); METAMYELOCYTES# (MANUAL) 1.28 x10^3/uL (0-0); METAMYELOCYTES% (MANUAL) 4 % (0-1); MONOS% (MANUAL) 10 % (2-9); NRBC % (MANUAL) 48 % (0-1); SEG#(MANUAL) 25.28 x10^3/uL (1.8-6.8); SEGS% (MANUAL) 79 % (42-75)
[2018-09-15 05:53] LABS: <PLATELET ESTIMATE> ADEQUATE; <PLT MORPHOLOGY> NORMAL PLT MORPH; ANISOCYTOSIS 2+; BASOPHILLIC STIPPLING 1+; MICROCYTOSIS 1+; OVALOCYTES 1+; PMNS WITH VACUOLES 1+; POLYCHROMASIA 1+; SCHISTOCYTES 1+; TARGET CELLS 1+; TOXIC GRAN 1+
[2018-09-15 05:55] LABS: ECHINOCYTES 1+
[2018-09-15] MEDS: PANTOPRAZOLE 40 MG IV IVPush SCH (06:38)
[2018-09-15] MEDS: RIFAXIMIN 550 MG TABLET NG SCH (07:50)
[2018-09-15] MEDS: SODIUM CHLORIDE FLUSH 10ML SYR IVF SCH ×2 (07:51)
[2018-09-15] MEDS: CEFTRIAXONE PMX 1GM/50ML 50 ML IV SCH (07:56)
[2018-09-15] MEDS: LACTULOSE 3.3 GM/5 ML ORAL.SOL RC SCH (08:29)
[2018-09-15] MEDS: OCTREOTIDE 500 MCG in DEXTROSE 5% 249 ML IV SCH (10:14)
[2018-09-15] MEDS: NOREPINEPHRINE 16 MG in SODIUM CHLORIDE 0.9% 234 ML IV PRN (14:27)
[2018-09-15] MEDS ORDERED: SMOF TPN IV SCH (17:00)
[2018-09-15] MEDS ORDERED: DEXTROSE 70% IV SCH (17:00)
[2018-09-15] MEDS ORDERED: FAT EMUL IV SCH (17:00)
[2018-09-15] MEDS ORDERED: AMINO ACID 10% IV SCH (17:00)
[2018-09-15] MEDS ORDERED: [UNRECOGNIZED DRUG - OTHER] IV SCH (17:00)
[2018-09-15] MEDS ORDERED: ATROPINE OPHTH SOLN 1%, 2ML PO PRN (19:00)
[2018-09-15] MEDS ORDERED: morphine SULFATE 10 MG/ML, 1ML IV ONE (19:00)
[2018-09-15] MEDS ORDERED: LORazepam 2 MG/ML, 1ML IV PRN (19:00)
[2018-09-15] MEDS ORDERED: LORazepam 2 MG/ML, 1ML IV ONE (19:00)
[2018-09-15] MEDS ORDERED: morphine SULFATE 10 MG/ML, 1ML IV PRN (19:00)
== END 2018-09-15 21:30 | disposition expired | DRG 870 ==
LOC: ED 01:00 → EDIP 03:19 → ICU 08:57 → CCU 09-09 06:22
PROVIDERS: ADMIT Family Medicine; ATTEND Family Medicine
PROC: 30233N1 Transfusion of Nonautologous Red Blood Cells into Peripheral Vein, Percutaneous Approach (ICD-10-PCS; principal; 2018-09-08)
PROC: 5A1955Z Respiratory Ventilation, Greater than 96 Consecutive Hours (ICD-10-PCS; 2018-09-08)
PROC: 30233K1 Transfusion of Nonautologous Frozen Plasma into Peripheral Vein, Percutaneous Approach (ICD-10-PCS; 2018-09-08)
PROC: 0T9B70Z Drainage of Bladder with Drainage Device, Via Natural or Artificial Opening (ICD-10-PCS; 2018-09-08)
PROC: 02H633Z Insertion of Infusion Device into Right Atrium, Percutaneous Approach (ICD-10-PCS; 2018-09-08)
PROC: 0BH17EZ Insertion of Endotracheal Airway into Trachea, Via Natural or Artificial Opening (ICD-10-PCS; 2018-09-08)
PROC: 06L38CZ Occlusion of Esophageal Vein with Extraluminal Device, Via Natural or Artificial Opening Endoscopic (ICD-10-PCS; 2018-09-09)
PROC: 05HN33Z Insertion of Infusion Device into Left Internal Jugular Vein, Percutaneous Approach (ICD-10-PCS; 2018-09-11)
PROC: B544ZZA Ultrasonography of Left Jugular Veins, Guidance (ICD-10-PCS; 2018-09-11)
PROC: 5A1D70Z Performance of Urinary Filtration, Intermittent, Less than 6 Hours Per Day (ICD-10-PCS; 2018-09-11)
PROC: 5A1D70Z Performance of Urinary Filtration, Intermittent, Less than 6 Hours Per Day (ICD-10-PCS; 2018-09-12)
PROC: 5A1D70Z Performance of Urinary Filtration, Intermittent, Less than 6 Hours Per Day (ICD-10-PCS; 2018-09-14)
DX: A41.9 Sepsis, unspecified organism (principal); G93.41 Metabolic encephalopathy; I81 Portal vein thrombosis; J96.00 Acute respiratory failure, unspecified whether with hypoxia or hypercapnia; K76.7 Hepatorenal syndrome; K85.90 Acute pancreatitis without necrosis or infection, unspecified; I85.11 Secondary esophageal varices with bleeding; N17.0 Acute kidney failure with tubular necrosis; R65.21 Severe sepsis with septic shock; D62 Acute posthemorrhagic anemia; D68.4 Acquired coagulation factor deficiency; E27.40 Unspecified adrenocortical insufficiency; E87.1 Hypo-osmolality and hyponatremia; K76.6 Portal hypertension; K80.10 Calculus of gallbladder with chronic cholecystitis without obstruction; N25.81 Secondary hyperparathyroidism of renal origin; Z99.11 Dependence on respirator [ventilator] status; D50.9 Iron deficiency anemia, unspecified; D69.6 Thrombocytopenia, unspecified; E83.51 Hypocalcemia; E87.6 Hypokalemia; F10.20 Alcohol dependence, uncomplicated; I10 Essential (primary) hypertension; K31.89 Other diseases of stomach and duodenum; K70.10 Alcoholic hepatitis without ascites; K70.30 Alcoholic cirrhosis of liver without ascites; K70.40 Alcoholic hepatic failure without coma; R57.1 Hypovolemic shock; Z66 Do not resuscitate; F32.9 Major depressive disorder, single episode, unspecified; Z87.891 Personal history of nicotine dependence; Z91.041 Radiographic dye allergy status
CPT/HCPCS: 36415; 36556; 36600; 74018; 77001; 99291; 99292; J3490; 36430; 70450; 71045; 76700; 80048; 80053; 80061; 80076; 80307; 81003; 82140; 82150; 82306; 82310; 82330; 82436; 82533; 82803; 82947; 82962; 83605; 83690; 83735; 83970; 84100; 84132; 84133; 84134; 84300; 84478; 85014; 85018; 85025; 85027; 85610; 85730; 86705; 86706; 86850; 86900; 86923; 87040; 87070; 87081; 87205; 87340; 93005; 94002; 94003; 96365; 96366; 96375; G0378; J0610; J0696; J2250; J2354; J2704; J2710; J3010; J3411; J3430; J3475; J3480; J7060; J7070; J7120; P9045; C1751; C9113; J0330; J1642; J1720; J1815; J2060; J2270; J3420; J7030; J7040; J7050; J7510; P9016; P9017